=== PATIENT | female | born 1985 | race Caucasian/White ===

== ENCOUNTER 2017-02-27 18:30 | Emergency (ER) | payer OTHER ==
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
[2017-02-27 18:43] VITALS: RESP 14; TEMP 98.4
[2017-02-27] MEDS ORDERED: KETOROLAC 30 MG/1 ML SDV IVP ONE (19:44)
[2017-02-27] MEDS ORDERED: LIDOCAINE 5% 1 EA PATCH TD ONE (19:46)
[2017-02-27] MEDS ORDERED: HYDROCOD/APAP 5/325 PREPACK#6 BTL TAKEHOME ONE (20:08)
[2017-02-27 20:22] VITALS: BP 130/78; PULSE 80; O2SAT 94
[2017-02-27] MEDS ORDERED: PATCH REMOVAL 1 EA PATCH TD SCH (21:00)
== END 2017-02-27 20:20 | disposition home or self-care (01) ==
LOC: EDUNIT# → EEVIPCON 18:30
DX: S19.9XXA Unspecified injury of neck, initial encounter (principal); V49.49XA Driver injured in collision with other motor vehicles in traffic accident, initial encounter; Y99.8 Other external cause status
CPT/HCPCS: 96374; J1885